=== PATIENT | female | born 1940 | race Caucasian/White ===

== ENCOUNTER 2022-01-08 22:07 | Inpatient (IN) ==
[2022-01-08] MEDS ORDERED: PROMETHAZINE INJ 12.5 MG in SODIUM CHLORIDE 0.9% 50 ML IV STA (22:34)
[2022-01-08] MEDS ORDERED: SODIUM CHLORIDE 0.9% 1,000 ML IV STA (22:34)
[2022-01-08] MEDS ORDERED: HYOSCYAMINE 0.5 MG/1 ML AMP IV STA (22:34)
[2022-01-08 23:07] LABS: Basophils % 0.2 % (0.0-0.8); Hematocrit 45.6 VOL% (35.7-47.0); Hemoglobin 14.5 GM/DL (12.0-16.0); Immature Granulocytes % 0.5 %; Immature Granulocytes Absolute 0.09 #; Lymphocytes # 0.8 10*3/uL (1.4-4.0); Lymphocytes % 4.1 % (21.3-54.2); Mean Corpuscular HGB Conc 31.8 GM/DL (32-36); Mean Corpuscular Volume 88.9 FL (87-102); Mean Platelet Volume 8.9 FL (9.6-12.0); Monocytes # 0.7 10*3/uL (0.11-0.8); Monocytes % 3.3 % (1.7-12.7); Neutrophils % 91.9 % (38.7-73.9); Platelet Count 356 T/CUMM (130-400); Red Blood Count 5.13 MC/CUMM (3.8-5.5); Red Cell Distribution Width 13.4 % (9.3-17.3); White Blood Count 19.9 T/CUMM (4-12)
[2022-01-08] MEDS ORDERED: PROMETHAZINE 25 MG/1 ML VIAL ONE (23:10)
[2022-01-08 23:26] LABS: Band Neutrophils 1 % (0-10); Lymphocytes 5 % (20-55); Platelet Estimate Normal; Total Cells Counted 100
[2022-01-08 23:28] LABS: Alanine Aminotransferase 19 U/L (13-56); Albumin 3.8 G/DL (3.4-5.0); Alkaline Phosphatase 107 U/L (45-117); Aspartate Amino Transferase 25 U/L (0-37); Blood Urea Nitrogen 14 MG/DL (7-18); Calcium 9.8 MG/DL (8.5-10.1); Carbon Dioxide 29 MMOL/L (21-32); Chloride 100 MMOL/L (98-107); Glucose 166 MG/DL (74-106); Osmolality,Calculated 277.8 MOS/KG (273-304); Potassium 4.9 MMOL/L (3.5-5.1); Sodium 137 MMOL/L (136-145); Total Protein 7.7 G/DL (6.4-8.2)
[2022-01-09] MEDS ORDERED: metroNIDAZOLE INJ 500 MG/100 ML PREMIX IV STA (00:08)
[2022-01-09] MEDS ORDERED: PROMETHAZINE INJ 12.5 MG in SODIUM CHLORIDE 0.9% 50 ML IV STA (00:08)
[2022-01-09] MEDS ORDERED: CIPROFLOXACIN INJ 400 MG/200 ML PREMIX IV STA (00:08)
[2022-01-09] MEDS ORDERED: SODIUM CHLORIDE 0.9% 1,000 ML IV STA (00:08)
[2022-01-09] MEDS ORDERED: PROMETHAZINE 25 MG/1 ML VIAL ONE ×2 (00:13→02:16)
[2022-01-09] MEDS ORDERED: ACETAMINOPHEN 325 MG TABLET PO PRN (00:56)
[2022-01-09] MEDS ORDERED: SODIUM CHLORIDE 0.9% 1,000 ML IV SCH (01:00)
[2022-01-09] MEDS ORDERED: ALBUTEROL 1.25 MG/3 ML NEB RESP TX PRN (01:00)
[2022-01-09] MEDS ORDERED: MORPHINE 2 MG/1 ML SYRINGE IV STA (01:53)
[2022-01-09] MEDS: PROMETHAZINE INJ 12.5 MG in SODIUM CHLORIDE 0.9% 50 ML IV PRN ×2 (02:20→08:59)
[2022-01-09] MEDS: METOPROLOL TARTRATE 25 MG TABLET PO SCH ×3 (04:04→21:31)
[2022-01-09 05:47] LABS: Basophils % 0.1 % (0.0-0.8); Hematocrit 38.4 VOL% (35.7-47.0); Hemoglobin 12.4 GM/DL (12.0-16.0); Immature Granulocytes % 0.6 %; Lymphocytes # 1.2 10*3/uL (1.4-4.0); Lymphocytes % 6.8 % (21.3-54.2); Mean Corpuscular HGB Conc 32.3 GM/DL (32-36); Mean Corpuscular Volume 88.1 FL (87-102); Mean Platelet Volume 9.2 FL (9.6-12.0); Monocytes # 0.8 10*3/uL (0.11-0.8); Monocytes % 4.4 % (1.7-12.7); Neutrophils % 88.1 % (38.7-73.9); Platelet Count 280 T/CUMM (130-400); Red Blood Count 4.36 MC/CUMM (3.8-5.5); Red Cell Distribution Width 13.5 % (9.3-17.3)
[2022-01-09 06:08] LABS: Calcium 8.6 MG/DL (8.5-10.1); Osmolality,Calculated 278.5 MOS/KG (273-304); Potassium 3.9 MMOL/L (3.5-5.1)
[2022-01-09] MEDS: metroNIDAZOLE INJ 500 MG/100 ML PREMIX IV SCH ×2 (08:59→17:15)
[2022-01-09] MEDS: ENOXAPARIN 40 MG/0.4 ML SYRINGE SUBCUT SCH (09:00)
[2022-01-09] MEDS: PANTOPRAZOLE 40 MG VIAL IV SCH (09:00)
[2022-01-09] MEDS: BUDESONIDE/FORMOTEROL 160-4.5 INHALER 6 GM INH SCH ×2 (09:06→21:28)
[2022-01-09] MEDS: LEVOFLOXACIN INJ 750 MG/150 ML PREMIX IV SCH (11:20)
[2022-01-09] MEDS ORDERED: MAGNESIUM SULF RIDER 2 GM/50 ML PREMIX IV ONE (11:25)
[2022-01-09] MEDS ORDERED: SCOPOLAMINE 1.5 MG PATCH TRANSDERM ONE (11:30)
[2022-01-09] MEDS ORDERED: SUCCINYLCHOLINE 200 MG/10 ML VIAL ONE (11:44)
[2022-01-09] MEDS ORDERED: ROCURONIUM 50 MG/5 ML VIAL IV ONE (11:44)
[2022-01-09] MEDS ORDERED: DEXAMETHASONE 4 MG/1 ML VIAL ONE (11:44)
[2022-01-09] MEDS ORDERED: propofoL 200 MG/20 ML VIAL IV ONE (11:44)
[2022-01-09] MEDS ORDERED: ONDANSETRON 4 MG/2 ML VIAL ONE (11:44)
[2022-01-09] MEDS ORDERED: DEXMEDETOMIDINE 200 MCG/2 ML VIAL ONE (11:44)
[2022-01-09] MEDS ORDERED: LIDOCAINE 2% 5 ML VIAL ONE (11:44)
[2022-01-09] MEDS ORDERED: KETAMINE 500 MG/10 ML VIAL ONE (11:45)
[2022-01-09] MEDS ORDERED: PHENYLEPHRINE 1 MG/10 ML SYRINGE IV ONE (13:51)
[2022-01-09] MEDS ORDERED: LACTATED RINGERS 1,000 ML IV ONE ×2 (13:51→15:47)
[2022-01-09] MEDS ORDERED: SODIUM CHLORIDE 0.9% 2,000 ML IV ONE (13:51)
[2022-01-09] MEDS ORDERED: CALCIUM CHLORIDE 1,000 MG/10 ML VIAL IV ONE (13:51)
[2022-01-09] MEDS ORDERED: SEVOFLURANE 1 UNIT/15 MINUTE INH ONE (13:52)
[2022-01-09] MEDS ORDERED: CIPROFLOXACIN INJ 200 MG/100 ML PREMIX IV SCH (14:00)
[2022-01-09] MEDS ORDERED: NEOSTIGMINE 10 MG/10 ML VIAL ONE (14:18)
[2022-01-09] MEDS ORDERED: GLYCOPYRROLATE 0.4 MG/2 ML VIAL ONE (14:18)
[2022-01-09 14:31] LABS: Hyaline Casts,Urine 3 /LPF (0-3); Mucus,Urine Occasional /LPF (Occasional); RBC,Urine 1 /HPF (0-4); Squamous Epithelial Cell,Urine Occasional /HPF (0-10)
[2022-01-09 14:32] LABS: Urine Appearance Clear (Clear); Urine Color Yellow (Yellow)
[2022-01-09 14:33] LABS: Glucose,Urine (UA) Negative (Negative); Ketones,Urine Negative (Negative); Nitrite,Urine Negative (Negative); Protein,Urine 30 mg/dL (Negative); Urine Specific Gravity >= 1.030 (1.001-1.035)
[2022-01-09 14:34] LABS: Bilirubin,Urine Negative (Negative); Blood, Urine Trace mg/dL (Negative); Urine Urobilinogen < 2.0 eU/dL (<2.0)
[2022-01-09] MEDS ORDERED: NOREPINEPHRINE 4 MG/4 ML VIAL IV ONE (14:54)
[2022-01-09] MEDS ORDERED: NOREPINEPHRINE 8 MG in SODIUM CHLORIDE 0.9% 242 ML IV PRN (15:51)
[2022-01-09 16:04] LABS: Basophils % 0.1 % (0.0-0.8); Hematocrit 38.3 VOL% (35.7-47.0); Hemoglobin 12.1 GM/DL (12.0-16.0); Immature Granulocytes % 0.7 %; Immature Granulocytes Absolute 0.11 #; Lymphocytes # 0.7 10*3/uL (1.4-4.0); Lymphocytes % 4.1 % (21.3-54.2); Mean Corpuscular HGB Conc 31.6 GM/DL (32-36); Mean Corpuscular Volume 90.1 FL (87-102); Mean Platelet Volume 9.2 FL (9.6-12.0); Monocytes # 0.5 10*3/uL (0.11-0.8); Monocytes % 3.1 % (1.7-12.7); Platelet Count 260 T/CUMM (130-400); Red Blood Count 4.25 MC/CUMM (3.8-5.5); Red Cell Distribution Width 13.6 % (9.3-17.3); White Blood Count 16.1 T/CUMM (4-12)
[2022-01-09] MEDS: MORPHINE 2 MG/1 ML SYRINGE IV PRN ×2 (16:04→21:23)
[2022-01-09 16:09] LABS: Arterial Base Excess iSTAT -2 MMOL/L (-2.5-2.5); Arterial Bicarbonate iSTAT 23.4 MMOL/L (20-26); Arterial O2 Saturation iSTAT 99 % (95-100); Arterial PCO2 iSTAT 43 MM HG (35-48); Arterial PO2 iSTAT 141 MM HG (80-95); Arterial Total CO2 iSTAT 25 MMO/L (23-27)
[2022-01-09 16:28] LABS: Albumin 2.3 G/DL (3.4-5.0); Bilirubin,Total 0.8 MG/DL (0.20-1.00); Calcium 8.6 MG/DL (8.5-10.1); Osmolality,Calculated 279.4 MOS/KG (273-304); Potassium 4.1 MMOL/L (3.5-5.1); Total Protein 5.3 G/DL (6.4-8.2)
[2022-01-09 16:32] LABS: Band Neutrophils 15 % (0-10)
[2022-01-09 16:35] LABS: Platelet Estimate Increased; Total Cells Counted 100
[2022-01-09] MEDS: LACTATED RINGERS 1,000 ML IV SCH ×2 (17:05→18:08)
[2022-01-10] MEDS: LACTATED RINGERS 1,000 ML IV SCH ×4 (00:13→20:31)
[2022-01-10] MEDS: MORPHINE 2 MG/1 ML SYRINGE IV PRN ×2 (00:35→21:05)
[2022-01-10] MEDS: metroNIDAZOLE INJ 500 MG/100 ML PREMIX IV SCH ×3 (00:50→16:53)
[2022-01-10 03:25] LABS: ABG HCO3 23.6 MMOL/L (20-26); ABG Oxygen Saturation 98.9 % (95-100); ABG PH 7.385 (7.35-7.45); ABG TCO2 21.4 MMOL/L (23-27)
[2022-01-10 05:50] LABS: Basophils % 0.2 % (0.0-0.8); Hematocrit 35.2 VOL% (35.7-47.0); Hemoglobin 11.1 GM/DL (12.0-16.0); Immature Granulocytes Absolute 0.19 #; Lymphocytes # 0.6 10*3/uL (1.4-4.0); Lymphocytes % 3.3 % (21.3-54.2); Mean Corpuscular HGB Conc 31.5 GM/DL (32-36); Mean Corpuscular Volume 88.9 FL (87-102); Mean Platelet Volume 9.3 FL (9.6-12.0); Monocytes # 0.8 10*3/uL (0.11-0.8); Monocytes % 4.1 % (1.7-12.7); Neutrophils % 91.4 % (38.7-73.9); Platelet Count 264 T/CUMM (130-400); Red Blood Count 3.96 MC/CUMM (3.8-5.5); Red Cell Distribution Width 13.5 % (9.3-17.3); White Blood Count 19.2 T/CUMM (4-12)
[2022-01-10 06:22] LABS: Band Neutrophils 1 % (0-10); Calcium 8.6 MG/DL (8.5-10.1); Lymphocytes 5 % (20-55); Osmolality,Calculated 282.3 MOS/KG (273-304); Platelet Estimate Adequate; Potassium 4.1 MMOL/L (3.5-5.1); Total Cells Counted 100
[2022-01-10] MEDS ORDERED: ALBUTEROL 1.25 MG/3 ML NEB RESP TX SCH (09:00)
[2022-01-10] MEDS: ENOXAPARIN 40 MG/0.4 ML SYRINGE SUBCUT SCH (09:17)
[2022-01-10] MEDS: METOPROLOL TARTRATE 5 MG/5 ML VIAL IV SCH ×3 (09:20→17:44)
[2022-01-10] MEDS: PANTOPRAZOLE 40 MG VIAL IV SCH (09:25)
[2022-01-10] MEDS: BUDESONIDE/FORMOTEROL 160-4.5 INHALER 6 GM INH SCH ×2 (09:36→20:30)
[2022-01-10] MEDS: PROMETHAZINE INJ 12.5 MG in SODIUM CHLORIDE 0.9% 50 ML IV PRN ×2 (10:15→16:53)
[2022-01-10] MEDS: LEVOFLOXACIN INJ 750 MG/150 ML PREMIX IV SCH (10:48)
[2022-01-10] MEDS: ALBUTEROL 1.25 MG/3 ML NEB RESP TX SCH ×2 (14:45→20:05)
[2022-01-11] MEDS: ALBUTEROL 1.25 MG/3 ML NEB RESP TX SCH ×4 (00:26→19:04)
[2022-01-11] MEDS: METOPROLOL TARTRATE 5 MG/5 ML VIAL IV SCH ×4 (00:45→17:32)
[2022-01-11] MEDS: metroNIDAZOLE INJ 500 MG/100 ML PREMIX IV SCH ×3 (00:46→17:00)
[2022-01-11] MEDS: LACTATED RINGERS 1,000 ML IV SCH ×2 (04:16→15:31)
[2022-01-11] MEDS: MORPHINE 2 MG/1 ML SYRINGE IV PRN ×2 (04:50→21:45)
[2022-01-11 06:02] LABS: Basophils % 0.1 % (0.0-0.8); Hematocrit 36.2 VOL% (35.7-47.0); Hemoglobin 11.6 GM/DL (12.0-16.0); Immature Granulocytes % 0.7 %; Lymphocytes # 0.8 10*3/uL (1.4-4.0); Lymphocytes % 5.7 % (21.3-54.2); Mean Corpuscular Volume 87.9 FL (87-102); Mean Platelet Volume 9.8 FL (9.6-12.0); Monocytes # 0.6 10*3/uL (0.11-0.8); Monocytes % 4.4 % (1.7-12.7); Neutrophils % 89.1 % (38.7-73.9); Platelet Count 297 T/CUMM (130-400); Red Blood Count 4.12 MC/CUMM (3.8-5.5); Red Cell Distribution Width 13.6 % (9.3-17.3); White Blood Count 13.8 T/CUMM (4-12)
[2022-01-11 06:15] LABS: Calcium 8.5 MG/DL (8.5-10.1); Osmolality,Calculated 277.5 MOS/KG (273-304); Potassium 3.5 MMOL/L (3.5-5.1)
[2022-01-11] MEDS ORDERED: MAGNESIUM SULF RIDER 4 GM/100 ML PREMIX IV ONE (08:01)
[2022-01-11] MEDS ORDERED: PROMETHAZINE INJ 12.5 MG in SODIUM CHLORIDE 0.9% 50 ML IM PRN (08:03)
[2022-01-11] MEDS: PANTOPRAZOLE 40 MG VIAL IV SCH (09:50)
[2022-01-11] MEDS: ENOXAPARIN 40 MG/0.4 ML SYRINGE SUBCUT SCH (09:52)
[2022-01-11] MEDS: BUDESONIDE/FORMOTEROL 160-4.5 INHALER 6 GM INH SCH ×2 (09:52→21:52)
[2022-01-11] MEDS: LEVOFLOXACIN INJ 750 MG/150 ML PREMIX IV SCH (12:15)
[2022-01-11] MEDS: PROMETHAZINE 25 MG/1 ML VIAL IM PRN (18:29)
[2022-01-11] MEDS ORDERED: KETOROLAC 30 MG/1 ML VIAL IM ONE (20:30)
[2022-01-12] MEDS: PROMETHAZINE 25 MG/1 ML VIAL IM PRN
[2022-01-12] MEDS: metroNIDAZOLE INJ 500 MG/100 ML PREMIX IV SCH ×3 (00:01→17:33)
[2022-01-12] MEDS: METOPROLOL TARTRATE 5 MG/5 ML VIAL IV SCH ×4 (00:01→17:27)
[2022-01-12] MEDS: ALBUTEROL 1.25 MG/3 ML NEB RESP TX SCH ×4 (02:01→20:00)
[2022-01-12] MEDS: LACTATED RINGERS 1,000 ML IV SCH ×3 (06:09→21:05)
[2022-01-12] MEDS ORDERED: POTASSIUM CHLORIDE 20 MEQ TABLET PO PRN (07:36)
[2022-01-12] MEDS ORDERED: MAGNESIUM SULF RIDER 2 GM/50 ML PREMIX IV PRN (07:36)
[2022-01-12 09:03] LABS: Basophils % 0.2 % (0.0-0.8); Hemoglobin 11.9 GM/DL (12.0-16.0); Immature Granulocytes % 0.9 %; Immature Granulocytes Absolute 0.11 #; Lymphocytes # 0.8 10*3/uL (1.4-4.0); Lymphocytes % 6.4 % (21.3-54.2); Mean Corpuscular HGB Conc 31.3 GM/DL (32-36); Mean Corpuscular Volume 88.8 FL (87-102); Mean Platelet Volume 9.2 FL (9.6-12.0); Neutrophils % 84.5 % (38.7-73.9); Platelet Count 302 T/CUMM (130-400); Red Blood Count 4.28 MC/CUMM (3.8-5.5); Red Cell Distribution Width 13.3 % (9.3-17.3); White Blood Count 12.8 T/CUMM (4-12)
[2022-01-12] MEDS ORDERED: methylPREDNISolone SOD SUC 40 MG/1 ML VIAL IV ONE (09:18)
[2022-01-12 09:26] LABS: Calcium 8.2 MG/DL (8.5-10.1); Osmolality,Calculated 273.7 MOS/KG (273-304); Potassium 3.2 MMOL/L (3.5-5.1)
[2022-01-12] MEDS: ENOXAPARIN 40 MG/0.4 ML SYRINGE SUBCUT SCH (09:35)
[2022-01-12] MEDS: METOPROLOL TARTRATE 25 MG TABLET PO SCH ×2 (09:35→21:11)
[2022-01-12] MEDS: PANTOPRAZOLE 40 MG VIAL IV SCH (09:35)
[2022-01-12] MEDS: POTASSIUM CHLORIDE RIDER 10 MEQ/100 ML PREMIX IV PRN ×6 (09:48→18:38)
[2022-01-12] MEDS: BUDESONIDE/FORMOTEROL 160-4.5 INHALER 6 GM INH SCH ×2 (09:48→21:12)
[2022-01-12] MEDS: LEVOFLOXACIN INJ 750 MG/150 ML PREMIX IV SCH (10:47)
[2022-01-12] MEDS: MORPHINE 2 MG/1 ML SYRINGE IV PRN (21:12)
[2022-01-13] MEDS: metroNIDAZOLE INJ 500 MG/100 ML PREMIX IV SCH ×3 (00:17→17:48)
[2022-01-13] MEDS: METOPROLOL TARTRATE 5 MG/5 ML VIAL IV SCH ×4 (00:17→18:37)
[2022-01-13] MEDS: ALBUTEROL 1.25 MG/3 ML NEB RESP TX SCH ×4 (00:49→19:05)
[2022-01-13 04:12] LABS: Basophils % 0.3 % (0.0-0.8); Hematocrit 38.1 VOL% (35.7-47.0); Hemoglobin 11.7 GM/DL (12.0-16.0); Immature Granulocytes % 1.2 %; Immature Granulocytes Absolute 0.17 #; Lymphocytes # 0.7 10*3/uL (1.4-4.0); Lymphocytes % 5.2 % (21.3-54.2); Mean Corpuscular HGB Conc 30.7 GM/DL (32-36); Mean Corpuscular Volume 88.4 FL (87-102); Mean Platelet Volume 9.3 FL (9.6-12.0); Monocytes # 1.3 10*3/uL (0.11-0.8); Monocytes % 9.2 % (1.7-12.7); Neutrophils % 84.1 % (38.7-73.9); Platelet Count 342 T/CUMM (130-400); Red Blood Count 4.31 MC/CUMM (3.8-5.5); Red Cell Distribution Width 13.2 % (9.3-17.3); White Blood Count 13.7 T/CUMM (4-12)
[2022-01-13 04:41] LABS: Calcium 8.5 MG/DL (8.5-10.1); Osmolality,Calculated 272.8 MOS/KG (273-304); Potassium 4.1 MMOL/L (3.5-5.1)
[2022-01-13] MEDS: LACTATED RINGERS 1,000 ML IV SCH ×4 (06:04→20:32)
[2022-01-13] MEDS ORDERED: methylPREDNISolone SOD SUC 40 MG/1 ML VIAL IV ONE (09:00)
[2022-01-13] MEDS ORDERED: LIDOCAINE 2% 20 ML VIAL RESP TX ONE (09:04)
[2022-01-13] MEDS ORDERED: LIDOCAINE 1% 20 ML VIAL MISC INJ ONE (09:04)
[2022-01-13] MEDS ORDERED: LIDOCAINE 2% VISCOUS 100 ML BOTTLE SWISH/SPIT ONE (09:04)
[2022-01-13] MEDS ORDERED: MIDAZOLAM 2 MG/2 ML VIAL ONE (09:52)
[2022-01-13] MEDS ORDERED: ALBUTEROL/IPRATROPIUM 3 ML NEB RESP TX PRN (09:53)
[2022-01-13] MEDS ORDERED: diphenhydrAMINE 50 MG/1 ML VIAL ONE (09:56)
[2022-01-13] MEDS ORDERED: diphenhydrAMINE 50 MG/1 ML VIAL IV ONE (09:57)
[2022-01-13] MEDS: PANTOPRAZOLE 40 MG VIAL IV SCH (10:21)
[2022-01-13] MEDS: ENOXAPARIN 40 MG/0.4 ML SYRINGE SUBCUT SCH (10:21)
[2022-01-13] MEDS: BUDESONIDE/FORMOTEROL 160-4.5 INHALER 6 GM INH SCH (10:21)
[2022-01-13] MEDS: METOPROLOL TARTRATE 25 MG TABLET PO SCH ×2 (10:21→21:41)
[2022-01-13 10:46] VITALS: BP 160/109
[2022-01-13] MEDS ORDERED: LORazepam 2 MG/1 ML VIAL IV PRN (11:02)
[2022-01-13] MEDS ORDERED: LORazepam 2 MG/1 ML VIAL ONE (11:05)
[2022-01-13] MEDS: LEVOFLOXACIN INJ 750 MG/150 ML PREMIX IV SCH (11:10)
[2022-01-13] MEDS ORDERED: ROCURONIUM 100 MG/10 ML VIAL IV ONE (11:56)
[2022-01-13] MEDS ORDERED: ETOMIDATE 20 MG/10 ML VIAL IV ONE (11:56)
[2022-01-13] MEDS ORDERED: NOREPINEPHRINE 4 MG/4 ML VIAL IV ONE (12:02)
[2022-01-13] MEDS: NOREPINEPHRINE 8 MG in SODIUM CHLORIDE 0.9% 242 ML IV PRN (12:06)
[2022-01-13] MEDS ORDERED: EPINEPHrine 1 MG/10 ML SYRINGE IV ONE (12:08)
[2022-01-13] MEDS ORDERED: SODIUM BICARBONATE 50 MEQ/50 ML SYRINGE IV ONE (12:09)
[2022-01-13] MEDS ORDERED: CALCIUM CHLORIDE 1,000 MG/10 ML SYRINGE IV ONE (12:10)
[2022-01-13] MEDS ORDERED: MAGNESIUM SULFATE 1 GM/2 ML VIAL IV ONE (12:14)
[2022-01-13] MEDS ORDERED: AMIODARONE 150 MG/3 ML VIAL IV ONE (12:17)
[2022-01-13] MEDS ORDERED: PHENYLEPHRINE DRIP 40 MG/250 ML PREMIX IV ONE (12:24)
[2022-01-13] MEDS ORDERED: AMIODARONE 450 MG/9 ML VIAL IV ONE (12:35)
[2022-01-13] MEDS ORDERED: AMIODARONE INJ 450 MG in DEXTROSE 5% 241 ML IV SCH (13:00)
[2022-01-13] MEDS ORDERED: ALBUTEROL/IPRATROPIUM 3 ML NEB RESP TX SCH (13:00)
[2022-01-13] MEDS: PHENYLEPHRINE DRIP 40 MG/250 ML PREMIX IV PRN ×3 (13:02→20:32)
[2022-01-13 13:18] LABS: ABG Base Excess 5.5 MMOL/L (-2.5-2.5); ABG HCO3 29.3 MMOL/L (20-26); ABG Oxygen Saturation 93.5 % (95-100); ABG PCO2 42.6 MM HG (35-48); ABG PH 7.455 (7.35-7.45); ABG PO2 68.5 MM HG (80-95); ABG TCO2 26.6 MMOL/L (23-27)
[2022-01-13] MEDS ORDERED: LACTATED RINGERS 500 ML IV ONE (13:21)
[2022-01-13] MEDS: IPRATROPIUM 500 MCG/2.5 ML NEB RESP TX SCH (13:48)
[2022-01-13] MEDS ORDERED: PHENTOLAMINE 5 MG VIAL IV ONE (14:00)
[2022-01-13] MEDS ORDERED: CISATRACURIUM 10 MG/5 ML VIAL IV ONE (14:31)
[2022-01-13 15:10] LABS: Basophils # 0.1 10*3/uL (0.0-0.2); Basophils % 0.4 % (0.0-0.8); Eosinophils # 0.1 10*3/uL (0.0-0.87); Eosinophils % 0.4 % (0.00-10.9); Hematocrit 37.2 VOL% (35.7-47.0); Immature Granulocytes % 2.4 %; Immature Granulocytes Absolute 0.56 #; Lymphocytes # 0.6 10*3/uL (1.4-4.0); Lymphocytes % 2.3 % (21.3-54.2); Mean Corpuscular HGB Conc 32.3 GM/DL (32-36); Mean Corpuscular Volume 87.1 FL (87-102); Mean Platelet Volume 9.2 FL (9.6-12.0); Monocytes # 1.2 10*3/uL (0.11-0.8); Neutrophils % 89.5 % (38.7-73.9); Platelet Count 382 T/CUMM (130-400); Red Blood Count 4.27 MC/CUMM (3.8-5.5); Red Cell Distribution Width 13.4 % (9.3-17.3); White Blood Count 23.5 T/CUMM (4-12)
[2022-01-13] MEDS: CISATRACURIUM 200 MG in SODIUM CHLORIDE 0.9% 180 ML IV PRN (15:10)
[2022-01-13 15:22] LABS: INR 1.4; PT Patient Result 15.2 SECS (10.5-12.0); Partial Thromboplastin Time 39.8 SECS (23.8-32.1)
[2022-01-13 15:33] LABS: Alanine Aminotransferase 78 U/L (13-56); Alkaline Phosphatase 123 U/L (45-117); Aspartate Amino Transferase 250 U/L (0-37); Blood Urea Nitrogen 14 MG/DL (7-18); Calcium 9.7 MG/DL (8.5-10.1); Carbon Dioxide 26 MMOL/L (21-32); Chloride 103 MMOL/L (98-107); Glucose 236 MG/DL (74-106); Osmolality,Calculated 287.4 MOS/KG (273-304); Potassium 3.7 MMOL/L (3.5-5.1); Sodium 140 MMOL/L (136-145)
[2022-01-13 15:34] LABS: CKMB % 7.73 %
[2022-01-13 15:35] LABS: Lymphocytes 2 % (20-55); Total Cells Counted 100
[2022-01-13 15:36] LABS: Platelet Estimate Adequate
[2022-01-13 15:36] LABS: High Sensitive Troponin I* 3121.6 ng/L (0-54)
[2022-01-13] MEDS ORDERED: INSULIN REGULAR 100 UNIT/ML IV ONE (16:00)
[2022-01-13] MEDS ORDERED: POTASSIUM CHLORIDE RIDER 20 MEQ/100 ML PREMIX IV ONE (16:38)
[2022-01-13] MEDS: POTASSIUM CHLORIDE RIDER 20 MEQ/100 ML PREMIX IV PRN ×2 (16:53→22:44)
[2022-01-13] MEDS ORDERED: NITROGLYCERIN DRIP 50 MG/250 ML BOTTLE IV ONE (19:25)
[2022-01-13] MEDS ORDERED: VERAPAMIL 5 MG/2 ML VIAL ONE (19:25)
[2022-01-13 21:13] LABS: ABG Base Excess -1.3 MMOL/L (-2.5-2.5); ABG HCO3 23.4 MMOL/L (20-26); ABG Oxygen Saturation 99.8 % (95-100); ABG PCO2 32.1 MM HG (35-48); ABG PH 7.445 (7.35-7.45); ABG TCO2 19.8 MMOL/L (23-27)
[2022-01-13 21:33] LABS: Basophils # 0.1 10*3/uL (0.0-0.2); Basophils % 0.5 % (0.0-0.8); Hematocrit 34.6 VOL% (35.7-47.0); Hemoglobin 11.2 GM/DL (12.0-16.0); Immature Granulocytes % 4.2 %; Immature Granulocytes Absolute 0.86 #; Lymphocytes # 0.4 10*3/uL (1.4-4.0); Mean Corpuscular HGB Conc 32.4 GM/DL (32-36); Mean Corpuscular Volume 86.3 FL (87-102); Mean Platelet Volume 9.7 FL (9.6-12.0); Monocytes # 1.4 10*3/uL (0.11-0.8); Monocytes % 6.7 % (1.7-12.7); Neutrophils % 86.6 % (38.7-73.9); Platelet Count 321 T/CUMM (130-400); Red Blood Count 4.01 MC/CUMM (3.8-5.5); Red Cell Distribution Width 13.3 % (9.3-17.3); White Blood Count 20.5 T/CUMM (4-12)
[2022-01-13 21:40] LABS: Calcium 8.6 MG/DL (8.5-10.1); INR 1.8; Osmolality,Calculated 289.4 MOS/KG (273-304); PT Patient Result 18.7 SECS (10.5-12.0); Partial Thromboplastin Time 32.8 SECS (23.8-32.1); Potassium 3.5 MMOL/L (3.5-5.1)
[2022-01-13] MEDS: MINERAL OIL/PETROLATUM OPH OINT 3.5 GM TUBE BOTH EYES SCH (21:42)
[2022-01-13 21:44] LABS: CKMB % 10.95 %; High Sensitive Troponin I* 1464.9 ng/L (0-54)
[2022-01-13 21:58] LABS: Band Neutrophils 1 % (0-10); Lymphocytes 3 % (20-55); Myelocytes 1 %; Total Cells Counted 100
[2022-01-13 21:59] LABS: Platelet Estimate Adequate
[2022-01-13] MEDS: ENOXAPARIN 60 MG/0.6 ML SYRINGE SUBCUT SCH (22:43)
[2022-01-13] MEDS: INSULIN REGULAR 100 UNIT/ML IV SCH (23:22)
[2022-01-13] MEDS: AMIODARONE INJ 450 MG in DEXTROSE 5% 241 ML IV SCH (23:28)
[2022-01-14] MEDS: IPRATROPIUM 500 MCG/2.5 ML NEB RESP TX SCH ×4 (00:41→22:39)
[2022-01-14] MEDS: ALBUTEROL 1.25 MG/3 ML NEB RESP TX SCH ×4 (00:42→19:05)
[2022-01-14] MEDS: PHENYLEPHRINE DRIP 40 MG/250 ML PREMIX IV PRN ×2 (00:44→06:02)
[2022-01-14] MEDS: CISATRACURIUM 200 MG in SODIUM CHLORIDE 0.9% 180 ML IV PRN (00:44)
[2022-01-14] MEDS: METOPROLOL TARTRATE 5 MG/5 ML VIAL IV SCH ×4 (00:47→18:54)
[2022-01-14] MEDS: metroNIDAZOLE INJ 500 MG/100 ML PREMIX IV SCH ×3 (01:25→17:24)
[2022-01-14] MEDS: INSULIN REGULAR 100 UNIT/ML IV SCH ×6 (01:44→21:20)
[2022-01-14 04:00] LABS: Basophils # 0.1 10*3/uL (0.0-0.2); Basophils % 0.7 % (0.0-0.8); Eosinophils # 0.1 10*3/uL (0.0-0.87); Eosinophils % 0.5 % (0.00-10.9); Hematocrit 34.9 VOL% (35.7-47.0); Hemoglobin 11.5 GM/DL (12.0-16.0); Immature Granulocytes Absolute 1.04 #; Lymphocytes # 0.7 10*3/uL (1.4-4.0); Lymphocytes % 3.2 % (21.3-54.2); Mean Corpuscular Volume 85.5 FL (87-102); Mean Platelet Volume 9.5 FL (9.6-12.0); Monocytes # 1.4 10*3/uL (0.11-0.8); Monocytes % 6.7 % (1.7-12.7); Neutrophils % 83.9 % (38.7-73.9); Platelet Count 309 T/CUMM (130-400); Red Blood Count 4.08 MC/CUMM (3.8-5.5); Red Cell Distribution Width 13.3 % (9.3-17.3); White Blood Count 20.7 T/CUMM (4-12)
[2022-01-14 04:01] LABS: ABG Base Excess 0.8 MMOL/L (-2.5-2.5); ABG HCO3 25.2 MMOL/L (20-26); ABG Oxygen Saturation 99.8 % (95-100); ABG PCO2 33.3 MM HG (35-48); ABG PH 7.466 (7.35-7.45); ABG TCO2 21.3 MMOL/L (23-27)
[2022-01-14 04:02] LABS: Bacteria,Urine Occasional /HPF (Few); Hyaline Casts,Urine 18 /LPF (0-3); Mucus,Urine Few /LPF (Occasional); RBC,Urine 1 /HPF (0-4); Squamous Epithelial Cell,Urine Occasional /HPF (0-10)
[2022-01-14 04:04] LABS: Bilirubin,Urine Moderate mg/dL (Negative); Blood, Urine Negative (Negative); Glucose,Urine (UA) Negative (Negative); Ketones,Urine 40 mg/dL (Negative); Nitrite,Urine Negative (Negative); Protein,Urine 30 mg/dL (Negative); Urine Appearance Clear (Clear); Urine Color Dark Yellow (Yellow); Urine Specific Gravity 1.025 (1.001-1.035); Urine Urobilinogen 0.2 eU/dL (<2.0); Urine pH 5.5 (4.5-8.0)
[2022-01-14 04:08] LABS: INR 1.6; PT Patient Result 17.2 SECS (10.5-12.0); Partial Thromboplastin Time 35.6 SECS (23.8-32.1)
[2022-01-14 04:17] LABS: CKMB % 14.13 %
[2022-01-14 04:22] LABS: Band Neutrophils 3 % (0-10); Lymphocytes 5 % (20-55); Total Cells Counted 100
[2022-01-14 04:23] LABS: Hypochromia Slight; Microcytosis 1+
[2022-01-14 04:26] LABS: Calcium 8.5 MG/DL (8.5-10.1); Osmolality,Calculated 286.5 MOS/KG (273-304); Potassium 3.6 MMOL/L (3.5-5.1)
[2022-01-14] MEDS: POTASSIUM CHLORIDE RIDER 20 MEQ/100 ML PREMIX IV PRN (05:32)
[2022-01-14] MEDS ORDERED: LACTATED RINGERS 1,000 ML IV ONE (07:51)
[2022-01-14] MEDS: LACTATED RINGERS 1,000 ML IV SCH ×2 (08:29→22:00)
[2022-01-14] MEDS: BUDESONIDE/FORMOTEROL 160-4.5 INHALER 6 GM INH SCH ×3 (08:30→20:50)
[2022-01-14 08:33] LABS: Basophils # 0.1 10*3/uL (0.0-0.2); Basophils % 0.6 % (0.0-0.8); Hematocrit 33.3 VOL% (35.7-47.0); Hemoglobin 11.2 GM/DL (12.0-16.0); Immature Granulocytes % 4.9 %; Immature Granulocytes Absolute 0.95 #; Lymphocytes # 0.9 10*3/uL (1.4-4.0); Lymphocytes % 4.6 % (21.3-54.2); Mean Corpuscular HGB Conc 33.6 GM/DL (32-36); Mean Corpuscular Volume 85.4 FL (87-102); Mean Platelet Volume 9.6 FL (9.6-12.0); Monocytes # 1.1 10*3/uL (0.11-0.8); Monocytes % 5.7 % (1.7-12.7); Neutrophils % 84.2 % (38.7-73.9); Platelet Count 288 T/CUMM (130-400); Red Cell Distribution Width 13.4 % (9.3-17.3); White Blood Count 19.2 T/CUMM (4-12)
[2022-01-14 08:40] LABS: INR 1.6; PT Patient Result 16.7 SECS (10.5-12.0); Partial Thromboplastin Time 37.6 SECS (23.8-32.1)
[2022-01-14 08:46] LABS: CKMB % 15.69 %
[2022-01-14 08:51] LABS: Band Neutrophils 4 % (0-10); Hypochromia Slight; Lymphocytes 3 % (20-55); Total Cells Counted 100
[2022-01-14 08:52] LABS: Microcytosis 1+
[2022-01-14 09:10] LABS: Calcium 8.3 MG/DL (8.5-10.1); Osmolality,Calculated 288.4 MOS/KG (273-304); Potassium 3.8 MMOL/L (3.5-5.1)
[2022-01-14] MEDS: ENOXAPARIN 60 MG/0.6 ML SYRINGE SUBCUT SCH ×2 (09:12→22:49)
[2022-01-14] MEDS: PANTOPRAZOLE 40 MG VIAL IV SCH (09:15)
[2022-01-14] MEDS: METOPROLOL TARTRATE 25 MG TABLET PO SCH (09:26)
[2022-01-14] MEDS ORDERED: fentaNYL 100 MCG/2 ML VIAL IV ONE (09:40)
[2022-01-14] MEDS: MINERAL OIL/PETROLATUM OPH OINT 3.5 GM TUBE BOTH EYES SCH ×3 (10:00→20:35)
[2022-01-14] MEDS ORDERED: POTASSIUM PHOSPHATE 20 MMOL in SODIUM CHLORIDE 0.9% 100 ML IV ONE (10:00)
[2022-01-14] MEDS: AMIODARONE INJ 450 MG in DEXTROSE 5% 241 ML IV SCH (10:45)
[2022-01-14] MEDS: fentaNYL INJ 1,250 MCG in SODIUM CHLORIDE 0.9% 225 ML IV PRN (11:04)
[2022-01-14] MEDS: LEVOFLOXACIN INJ 750 MG/150 ML PREMIX IV SCH (11:10)
[2022-01-14] MEDS: PHENYLEPHRINE INJ 160 MG in SODIUM CHLORIDE 0.9% 234 ML IV PRN (12:13)
[2022-01-14 14:10] LABS: Basophils # 0.1 10*3/uL (0.0-0.2); Basophils % 0.5 % (0.0-0.8); Hematocrit 32.4 VOL% (35.7-47.0); Hemoglobin 10.8 GM/DL (12.0-16.0); Immature Granulocytes % 4.4 %; Immature Granulocytes Absolute 1.02 #; Lymphocytes # 0.9 10*3/uL (1.4-4.0); Lymphocytes % 3.7 % (21.3-54.2); Mean Corpuscular HGB Conc 33.3 GM/DL (32-36); Mean Corpuscular Volume 84.6 FL (87-102); Mean Platelet Volume 9.7 FL (9.6-12.0); Monocytes # 1.1 10*3/uL (0.11-0.8); Monocytes % 4.9 % (1.7-12.7); Neutrophils % 86.5 % (38.7-73.9); Platelet Count 263 T/CUMM (130-400); Red Blood Count 3.83 MC/CUMM (3.8-5.5); Red Cell Distribution Width 13.6 % (9.3-17.3); White Blood Count 23.1 T/CUMM (4-12)
[2022-01-14 14:16] LABS: INR 1.6; PT Patient Result 17.5 SECS (10.5-12.0); Partial Thromboplastin Time 41.6 SECS (23.8-32.1)
[2022-01-14 14:23] LABS: CKMB % 15.9 %; High Sensitive Troponin I* 850.6 ng/L (0-54)
[2022-01-14 14:25] LABS: Osmolality,Calculated 285.5 MOS/KG (273-304)
[2022-01-14 14:39] LABS: Anisocytosis Slight; Band Neutrophils 6 % (0-10); Lymphocytes 1 % (20-55); Platelet Estimate Adequate; Total Cells Counted 100
[2022-01-14 14:40] LABS: Microcytosis Slight
[2022-01-14] MEDS ORDERED: MAGNESIUM SULF RIDER 2 GM/50 ML PREMIX IV ONE (15:13)
[2022-01-14] MEDS: MAGNESIUM SULF RIDER 1 GM/100 ML PREMIX IV PRN (15:15)
[2022-01-15] MEDS: ALBUTEROL 1.25 MG/3 ML NEB RESP TX SCH ×4 (00:06→18:30)
[2022-01-15] MEDS: INSULIN REGULAR 100 UNIT/ML IV SCH ×6 (01:16→20:45)
[2022-01-15] MEDS: metroNIDAZOLE INJ 500 MG/100 ML PREMIX IV SCH ×3 (01:37→16:56)
[2022-01-15] MEDS: METOPROLOL TARTRATE 5 MG/5 ML VIAL IV SCH ×4 (01:45→17:07)
[2022-01-15] MEDS: AMIODARONE INJ 450 MG in DEXTROSE 5% 241 ML IV SCH ×2 (02:17→17:05)
[2022-01-15] MEDS ORDERED: ALBUMIN 25% 25 GM/100 ML VIAL IV ONE (02:38)
[2022-01-15] MEDS ORDERED: LACTATED RINGERS 500 ML IV ONE ×3 (02:38→15:00)
[2022-01-15] MEDS: PHENYLEPHRINE INJ 160 MG in SODIUM CHLORIDE 0.9% 234 ML IV PRN ×2 (03:15→11:18)
[2022-01-15] MEDS: NOREPINEPHRINE 8 MG in SODIUM CHLORIDE 0.9% 242 ML IV PRN ×3 (03:45→21:50)
[2022-01-15 04:48] LABS: ABG Base Excess 1.8 MMOL/L (-2.5-2.5); ABG Oxygen Saturation 99.1 % (95-100); ABG PCO2 32.7 MM HG (35-48); ABG PH 7.485 (7.35-7.45); ABG TCO2 21.7 MMOL/L (23-27)
[2022-01-15 05:08] LABS: Basophils # 0.2 10*3/uL (0.0-0.2); Basophils % 0.5 % (0.0-0.8); Eosinophils % 0.1 % (0.00-10.9); Hematocrit 35.6 VOL% (35.7-47.0); Hemoglobin 11.9 GM/DL (12.0-16.0); Immature Granulocytes % 5.9 %; Immature Granulocytes Absolute 1.86 #; Lymphocytes # 1.6 10*3/uL (1.4-4.0); Lymphocytes % 5.2 % (21.3-54.2); Mean Corpuscular HGB Conc 33.4 GM/DL (32-36); Mean Corpuscular Volume 84.4 FL (87-102); Mean Platelet Volume 9.8 FL (9.6-12.0); Monocytes # 1.2 10*3/uL (0.11-0.8); Monocytes % 3.7 % (1.7-12.7); NRBC # 0.06 10*3/uL; Neutrophils % 84.6 % (38.7-73.9); Platelet Count 333 T/CUMM (130-400); Red Blood Count 4.22 MC/CUMM (3.8-5.5); Red Cell Distribution Width 13.7 % (9.3-17.3); White Blood Count 31.6 T/CUMM (4-12)
[2022-01-15 05:19] LABS: Calcium 8.1 MG/DL (8.5-10.1); Osmolality,Calculated 284.4 MOS/KG (273-304); Potassium 4.3 MMOL/L (3.5-5.1)
[2022-01-15 05:29] LABS: Band Neutrophils 3 % (0-10); Lymphocytes 3 % (20-55); Platelet Estimate Adequate; Total Cells Counted 100
[2022-01-15 06:38] LABS: INR 1.6; PT Patient Result 17.1 SECS (10.5-12.0); Partial Thromboplastin Time 39.1 SECS (23.8-32.1)
[2022-01-15] MEDS: IPRATROPIUM 500 MCG/2.5 ML NEB RESP TX SCH ×4 (06:49→23:01)
[2022-01-15] MEDS: fentaNYL INJ 1,250 MCG in SODIUM CHLORIDE 0.9% 225 ML IV PRN (07:06)
[2022-01-15] MEDS: MINERAL OIL/PETROLATUM OPH OINT 3.5 GM TUBE BOTH EYES SCH ×3 (08:02→22:12)
[2022-01-15] MEDS: BUDESONIDE/FORMOTEROL 160-4.5 INHALER 6 GM INH SCH ×2 (08:02→20:10)
[2022-01-15] MEDS: MAGNESIUM SULF RIDER 1 GM/100 ML PREMIX IV PRN ×2 (08:24→18:18)
[2022-01-15] MEDS: PANTOPRAZOLE 40 MG VIAL IV SCH (08:28)
[2022-01-15] MEDS: ENOXAPARIN 60 MG/0.6 ML SYRINGE SUBCUT SCH ×3 (08:30→22:11)
[2022-01-15 08:48] LABS: Basophils # 0.1 10*3/uL (0.0-0.2); Basophils % 0.4 % (0.0-0.8); Eosinophils # 0.1 10*3/uL (0.0-0.87); Eosinophils % 0.2 % (0.00-10.9); Hematocrit 31.6 VOL% (35.7-47.0); Hemoglobin 10.5 GM/DL (12.0-16.0); Immature Granulocytes % 5.7 %; Immature Granulocytes Absolute 1.58 #; Lymphocytes # 1.7 10*3/uL (1.4-4.0); Mean Corpuscular HGB Conc 33.2 GM/DL (32-36); Mean Corpuscular Volume 84.7 FL (87-102); Mean Platelet Volume 9.8 FL (9.6-12.0); Monocytes # 0.9 10*3/uL (0.11-0.8); Monocytes % 3.3 % (1.7-12.7); NRBC # 0.15 10*3/uL; Neutrophils % 84.4 % (38.7-73.9); Platelet Count 280 T/CUMM (130-400); Red Blood Count 3.73 MC/CUMM (3.8-5.5); Red Cell Distribution Width 13.8 % (9.3-17.3)
[2022-01-15 08:58] LABS: INR 1.6; PT Patient Result 17.2 SECS (10.5-12.0); Partial Thromboplastin Time 41.9 SECS (23.8-32.1)
[2022-01-15 09:04] LABS: Calcium 7.9 MG/DL (8.5-10.1); Osmolality,Calculated 285.3 MOS/KG (273-304); Potassium 4.3 MMOL/L (3.5-5.1)
[2022-01-15 09:17] LABS: Band Neutrophils 2 % (0-10); Lymphocytes 5 % (20-55); Nucleated Red Blood Cells 1 (0-5); Platelet Estimate Adequate; Total Cells Counted 100
[2022-01-15] MEDS: LACTATED RINGERS 1,000 ML IV SCH (09:30)
[2022-01-15] MEDS ORDERED: ALBUMIN 5% 12.5 GM/250 ML VIAL IV ONE ×2 (10:58→15:00)
[2022-01-15] MEDS: LEVOFLOXACIN INJ 750 MG/150 ML PREMIX IV SCH (11:12)
[2022-01-15] MEDS ORDERED: SODIUM PHOSPHATE INJ 20 MMOL in SODIUM CHLORIDE 0.9% 250 ML IV ONE (14:00)
[2022-01-15 15:41] LABS: Basophils # 0.1 10*3/uL (0.0-0.2); Basophils % 0.5 % (0.0-0.8); Hematocrit 28.8 VOL% (35.7-47.0); Hemoglobin 9.3 GM/DL (12.0-16.0); Immature Granulocytes % 5.4 %; Immature Granulocytes Absolute 1.02 #; Lymphocytes # 1.8 10*3/uL (1.4-4.0); Lymphocytes % 9.2 % (21.3-54.2); Mean Corpuscular HGB Conc 32.3 GM/DL (32-36); Mean Corpuscular Volume 85.7 FL (87-102); Mean Platelet Volume 10.2 FL (9.6-12.0); Monocytes # 0.7 10*3/uL (0.11-0.8); Monocytes % 3.6 % (1.7-12.7); NRBC # 0.26 10*3/uL; Neutrophils % 81.3 % (38.7-73.9); Platelet Count 240 T/CUMM (130-400); Red Blood Count 3.36 MC/CUMM (3.8-5.5)
[2022-01-15 15:52] LABS: INR 1.6; PT Patient Result 16.8 SECS (10.5-12.0); Partial Thromboplastin Time 48.8 SECS (23.8-32.1)
[2022-01-15 15:58] LABS: Calcium 7.6 MG/DL (8.5-10.1); Osmolality,Calculated 282.5 MOS/KG (273-304); Potassium 4.3 MMOL/L (3.5-5.1)
[2022-01-15 16:01] LABS: Band Neutrophils 8 % (0-10); Lymphocytes 11 % (20-55); Metamyelocytes 1 %; Total Cells Counted 100
[2022-01-15 16:02] LABS: Anisocytosis Slight; Hypochromia 1+; Platelet Estimate Adequate
[2022-01-15] MEDS ORDERED: LACTATED RINGERS 1,000 ML IV ONE (17:28)
[2022-01-15] MEDS ORDERED: LACTATED RINGERS 1,000 ML IV SCH (18:00)
[2022-01-16] MEDS: LACTATED RINGERS 1,000 ML IV SCH ×3 (00:34→15:53)
[2022-01-16] MEDS: ALBUTEROL 1.25 MG/3 ML NEB RESP TX SCH ×4 (00:39→19:37)
[2022-01-16] MEDS: METOPROLOL TARTRATE 5 MG/5 ML VIAL IV SCH ×5 (01:21→23:28)
[2022-01-16] MEDS: INSULIN REGULAR 100 UNIT/ML IV SCH ×6 (01:23→21:29)
[2022-01-16] MEDS: metroNIDAZOLE INJ 500 MG/100 ML PREMIX IV SCH ×3 (01:31→16:02)
[2022-01-16] MEDS: NOREPINEPHRINE 8 MG in SODIUM CHLORIDE 0.9% 242 ML IV PRN ×4 (03:00→18:32)
[2022-01-16] MEDS: fentaNYL INJ 1,250 MCG in SODIUM CHLORIDE 0.9% 225 ML IV PRN ×2 (03:19→15:46)
[2022-01-16 03:28] LABS: ABG Base Excess -3.1 MMOL/L (-2.5-2.5); ABG HCO3 21.8 MMOL/L (20-26); ABG Oxygen Saturation 97.9 % (95-100); ABG PCO2 42.7 MM HG (35-48); ABG PH 7.334 (7.35-7.45); ABG TCO2 20.9 MMOL/L (23-27)
[2022-01-16 03:33] LABS: Basophils # 0.1 10*3/uL (0.0-0.2); Basophils % 0.4 % (0.0-0.8); Eosinophils % 0.2 % (0.00-10.9); Hematocrit 29.5 VOL% (35.7-47.0); Hemoglobin 9.3 GM/DL (12.0-16.0); Immature Granulocytes % 3.7 %; Immature Granulocytes Absolute 0.66 #; Lymphocytes # 1.6 10*3/uL (1.4-4.0); Lymphocytes % 8.7 % (21.3-54.2); Mean Corpuscular HGB Conc 31.5 GM/DL (32-36); Mean Corpuscular Volume 89.7 FL (87-102); Mean Platelet Volume 10.1 FL (9.6-12.0); Monocytes # 0.5 10*3/uL (0.11-0.8); Monocytes % 2.8 % (1.7-12.7); NRBC # 0.26 10*3/uL; Neutrophils % 84.2 % (38.7-73.9); Platelet Count 237 T/CUMM (130-400); Red Blood Count 3.29 MC/CUMM (3.8-5.5); Red Cell Distribution Width 14.4 % (9.3-17.3); White Blood Count 17.9 T/CUMM (4-12)
[2022-01-16 03:52] LABS: Albumin 2.3 G/DL (3.4-5.0); Bilirubin,Total 0.8 MG/DL (0.20-1.00); Calcium 7.4 MG/DL (8.5-10.1); Osmolality,Calculated 277.7 MOS/KG (273-304); Potassium 4.3 MMOL/L (3.5-5.1); Total Protein 4.3 G/DL (6.4-8.2)
[2022-01-16 04:06] LABS: Hypochromia Slight; Lymphocytes 8 % (20-55); Nucleated Red Blood Cells 1 (0-5); Platelet Estimate Adequate; Total Cells Counted 100
[2022-01-16] MEDS: IPRATROPIUM 500 MCG/2.5 ML NEB RESP TX SCH ×3 (07:11→22:22)
[2022-01-16] MEDS: AMIODARONE INJ 450 MG in DEXTROSE 5% 241 ML IV SCH ×2 (08:32→23:15)
[2022-01-16] MEDS: PHENYLEPHRINE INJ 160 MG in SODIUM CHLORIDE 0.9% 234 ML IV PRN (08:32)
[2022-01-16] MEDS: PANTOPRAZOLE 40 MG VIAL IV SCH (09:52)
[2022-01-16] MEDS: ENOXAPARIN 60 MG/0.6 ML SYRINGE SUBCUT SCH ×2 (09:52→21:34)
[2022-01-16] MEDS: LEVOFLOXACIN INJ 750 MG/150 ML PREMIX IV SCH (10:01)
[2022-01-16] MEDS: MINERAL OIL/PETROLATUM OPH OINT 3.5 GM TUBE BOTH EYES SCH ×2 (10:35→15:40)
[2022-01-16] MEDS ORDERED: LACTATED RINGERS 1,000 ML IV ONE (11:31)
[2022-01-16] MEDS: BUDESONIDE/FORMOTEROL 160-4.5 INHALER 6 GM INH SCH ×2 (11:38→21:30)
[2022-01-16] MEDS ORDERED: MINERAL OIL/PETROLATUM OPH OINT 3.5 GM TUBE BOTH EYES PRN (15:27)
[2022-01-17] MEDS: NOREPINEPHRINE 8 MG in SODIUM CHLORIDE 0.9% 242 ML IV PRN ×4 (00:15→16:28)
[2022-01-17] MEDS: ALBUTEROL 1.25 MG/3 ML NEB RESP TX SCH ×2 (00:36→07:00)
[2022-01-17] MEDS: fentaNYL INJ 1,250 MCG in SODIUM CHLORIDE 0.9% 225 ML IV PRN ×2 (01:22→12:52)
[2022-01-17] MEDS: LACTATED RINGERS 1,000 ML IV SCH ×3 (01:22→16:09)
[2022-01-17] MEDS: INSULIN REGULAR 100 UNIT/ML IV SCH ×6 (01:25→19:42)
[2022-01-17 03:51] LABS: ABG Base Excess -3.3 MMOL/L (-2.5-2.5); ABG HCO3 21.7 MMOL/L (20-26); ABG Oxygen Saturation 97.3 % (95-100); ABG PCO2 37.5 MM HG (35-48); ABG PH 7.368 (7.35-7.45); ABG TCO2 19.8 MMOL/L (23-27)
[2022-01-17 03:55] LABS: Basophils # 0.1 10*3/uL (0.0-0.2); Basophils % 0.4 % (0.0-0.8); Hematocrit 30.2 VOL% (35.7-47.0); Hemoglobin 9.6 GM/DL (12.0-16.0); Immature Granulocytes % 3.6 %; Immature Granulocytes Absolute 0.79 #; Lymphocytes # 1.1 10*3/uL (1.4-4.0); Mean Corpuscular HGB Conc 31.8 GM/DL (32-36); Mean Corpuscular Volume 88.6 FL (87-102); Mean Platelet Volume 10.2 FL (9.6-12.0); Monocytes # 0.6 10*3/uL (0.11-0.8); Monocytes % 2.7 % (1.7-12.7); NRBC # 0.18 10*3/uL; Neutrophils % 88.3 % (38.7-73.9); Platelet Count 224 T/CUMM (130-400); Red Blood Count 3.41 MC/CUMM (3.8-5.5); Red Cell Distribution Width 14.6 % (9.3-17.3); White Blood Count 21.7 T/CUMM (4-12)
[2022-01-17 04:13] LABS: Albumin 2.1 G/DL (3.4-5.0); Bilirubin,Total 1.2 MG/DL (0.20-1.00); Calcium 7.7 MG/DL (8.5-10.1); Osmolality,Calculated 275.8 MOS/KG (273-304); Potassium 4.4 MMOL/L (3.5-5.1); Total Protein 4.3 G/DL (6.4-8.2)
[2022-01-17 04:18] LABS: Lymphocytes 6 % (20-55); Nucleated Red Blood Cells 1 (0-5); Platelet Estimate Adequate; Total Cells Counted 100
[2022-01-17] MEDS: IPRATROPIUM 500 MCG/2.5 ML NEB RESP TX SCH ×2 (07:00→14:45)
[2022-01-17] MEDS: PHENYLEPHRINE INJ 160 MG in SODIUM CHLORIDE 0.9% 234 ML IV PRN ×2 (07:15→19:15)
[2022-01-17] MEDS: METOPROLOL TARTRATE 5 MG/5 ML VIAL IV SCH ×4 (07:19→17:57)
[2022-01-17] MEDS: BUDESONIDE/FORMOTEROL 160-4.5 INHALER 6 GM INH SCH ×2 (09:41→21:59)
[2022-01-17] MEDS: ENOXAPARIN 60 MG/0.6 ML SYRINGE SUBCUT SCH (09:41)
[2022-01-17] MEDS: PANTOPRAZOLE 40 MG VIAL IV SCH (09:41)
[2022-01-17] MEDS: ALBUMIN 25% 25 GM/100 ML VIAL IV SCH ×2 (10:50→18:40)
[2022-01-17 13:25] LABS: ABG Base Excess -7.3 MMOL/L (-2.5-2.5); ABG HCO3 18.4 MMOL/L (20-26); ABG Oxygen Saturation 91.7 % (95-100); ABG PCO2 38.1 MM HG (35-48); ABG PH 7.297 (7.35-7.45); ABG PO2 74.3 MM HG (80-95); ABG TCO2 17.4 MMOL/L (23-27)
[2022-01-17] MEDS: AMIODARONE INJ 450 MG in DEXTROSE 5% 241 ML IV SCH (13:30)
[2022-01-17] MEDS ORDERED: SODIUM PHOSPHATE INJ 30 MMOL in SODIUM CHLORIDE 0.9% 250 ML IV ONE (15:00)
[2022-01-17 15:56] LABS: Calcium 7.3 MG/DL (8.5-10.1); Osmolality,Calculated 276.7 MOS/KG (273-304); Potassium 5.3 MMOL/L (3.5-5.1)
[2022-01-17] MEDS ORDERED: VASOPRESSIN 100 UNITS in SODIUM CHLORIDE 0.9% 95 ML IV PRN (16:06)
[2022-01-17] MEDS ORDERED: FUROSEMIDE 20 MG/2 ML VIAL IV ONE (16:06)
[2022-01-17] MEDS ORDERED: SODIUM BICARBONATE 50 MEQ/50 ML VIAL IV ONE ×2 (16:19→18:13)
[2022-01-17] MEDS ORDERED: NOREPINEPHRINE 4 MG/4 ML VIAL IV ONE (16:24)
[2022-01-17] MEDS ORDERED: HYDROCORTISONE 100 MG VIAL IV SCH (16:30)
[2022-01-17] MEDS ORDERED: SODIUM CHLORIDE 0.9% 1,000 ML IV ONE ×2 (17:05→18:13)
[2022-01-17] MEDS ORDERED: DOBUTamine 500 MG/250 ML PREMIX IV ONE (17:36)
[2022-01-17] MEDS ORDERED: MAGNESIUM SULF RIDER 2 GM/50 ML PREMIX IV ONE ×2 (17:36→17:47)
[2022-01-17] MEDS ORDERED: DOBUTamine 500 MG/250 ML PREMIX IV PRN (17:53)
[2022-01-17] MEDS ORDERED: ALBUMIN 5% 12.5 GM/250 ML VIAL IV ONE ×2 (18:15→18:24)
[2022-01-17 18:23] LABS: ABG Base Excess -7.6 MMOL/L (-2.5-2.5); ABG HCO3 18.2 MMOL/L (20-26); ABG PCO2 35.2 MM HG (35-48); ABG PH 7.315 (7.35-7.45); ABG TCO2 16.8 MMOL/L (23-27); Glucose Heart Surgery 93 MG/DL (74-106); Hematocrit Heart Surgery 25.4 PERCENT (37-47); Hemoglobin Heart Surgery 8.2 G/DL (12.0-16.0); Potassium Heart/CVR 4.9 MMOL/L (3.5-5.1)
[2022-01-17] MEDS ORDERED: LORazepam 2 MG/1 ML VIAL IV ONE (18:56)
[2022-01-17] MEDS ORDERED: MIDAZOLAM 2 MG/2 ML VIAL ONE (19:06)
[2022-01-17] MEDS ORDERED: DEXTROSE 50% 25 GM/50 ML SYRINGE IV ONE ×2 (19:16→19:18)
== END 2022-01-17 20:45 | disposition expired | DRG 853 ==
LOC: N.ED 22:07 → N.EDINP 01-09 00:18 → SUATTDRO 01-09 00:18 → N.EDINP 01-09 02:14 → N.5E 01-09 02:52 → N.ICU 01-09 14:02
PROVIDERS: ADMIT Internal Medicine; ATTEND Family Medicine